=== PATIENT | female | born 1970 | race Caucasian/White ===

== ENCOUNTER 2021-05-16 12:07 | Emergency (ER) | payer MEDICAID, OTHER ==
[~2021-05-16] VITALS: Ht 160 cm; Wt 81.8 kg
[~2021-05-16 12:07] MED LIST: CARI350T PO; CARV-50 PO; DULO-31 PO; ESOM40CA PO; FENO135C3 PO; IBUP-1984 PO; NORCO10T PO; ZOC40T PO; ZOLP12.531 PO
[2021-05-16 12:26] VITALS: BP 124/86
[2021-05-16] MEDS ORDERED: BACL10TA PO (12:40)
== END 2021-05-16 13:03 | disposition home or self-care (01) ==
LOC: ER 12:09
DX: S13.4XXA Sprain of ligaments of cervical spine, initial encounter (principal); M54.6 Pain in thoracic spine; M25.561 Pain in right knee; G89.29 Other chronic pain; Z88.1 Allergy status to other antibiotic agents; Z88.8 Allergy status to other drugs, medicaments and biological substances; Z79.899 Other long term (current) drug therapy; W18.09XA Striking against other object with subsequent fall, initial encounter; Y93.89 Activity, other specified; Y92.89 Other specified places as the place of occurrence of the external cause; Y99.8 Other external cause status
CPT/HCPCS: 99283